=== PATIENT | male | born 1975 | race Caucasian/White ===

== ENCOUNTER 2018-08-26 10:57 | Outpatient (CLI) | payer BC ==
[~2018-08-26] VITALS: Ht 175.3 cm; Wt 106.8 kg
--- NOTE | ~2018-08-26 | HEMODYNAMI ---
PATIENT:VIRGINIA PORTILLO MEDICAL RECORD: [id number] : 73 LOCATION:[facility] ADMISSION DATE: 08/26/18 Generatedon:08/26/201813:48 Patient name: VIRGINIA PORTILLO Patient #: [id number] SSN: : 1975 Date of study: 08/26/2018 Page: Of Hemodynamic Procedure Report Patient Data Patient Demographics Procedure consent was obtained First Name: VIRGINIA Gender: Male Last Name: LINDSEY : 1975 Patient #: [id number] Age: 42 year(s) Race: Unknown Additional ID: [id number] Contact details Address: [address] [place] [address] [address] State: [place] City: [place] Zip code: [address] Past Medical History Allergies: No known allergies Admission Admission Data Admission Date: 08/26/2018 Admission Time: 10:57 Admit Source: Other Weight (lbs.): 233.69 Weight (kg.): 106 Lab Results Lab Result Date: 08/26/2018 Lab Result Time: 11:25 Biochemistry Name Units Result Min Max BUN mg/dl 18 --(---*)-- 7 18 Creatinine mg/dl 1.2 --(---*)-- 0.6 1.3 CBC Name Units Result Min Max Hematocrit % 38 *-(----)-- 42 54 Hemoglobin g/dl 13.4 -*(----)-- 13.5 17.5 Procedure Procedure Types Cath Procedure Diagnostic Procedure LHC LH w/Coronaries Sedation Charges Moderate Sedation up to 15 minutes PCI Procedure Coronary Stent Coronary Stent Initial Procedure Description Procedure Date Procedure Date: 08/26/2018 Procedure Start Time: 13:28 Procedure End Time: 13:47 Procedure Staff Name Function Cristino Ramirez MD Performing Physician Fernie Hernandez RT Monitor Adolfo Palm RT Scrub Preston Carrillo RN Nurse Stefanie Khan RN [employer] Supervisor Procedure Data Cath Procedure Fluoroscopy Diagnostic fluoroscopy Total fluoroscopy Time: 4.1 time: 4.1 min min Diagnostic fluoroscopy Total fluoroscopy dose: dose: 1328 mGy 1328 mGy Contrast Material Contrast Material Type Amount (ml) Isovue 370 87 Entry Location Entry Primary Successful Side Size Upsize Upsize Entry Closure Moody ccessful Closure Location (Fr) 1 (Fr) 2 (Fr) Remarks Device Remarks Radial Right 6 Fr Mechanical artery Short Compression Estimated blood loss: 10 ml Diagnostic catheters Device Type Used For End Catheter Placement DIAGNOSTIC Deandre 110cm Procedure 5Fr catheter ([id number]) Procedure Complications No complications Procedure Medications Medication Administration Route Dosage Oxygen etCO2 Nasal cannula 2 l/min Lidocaine 2% added to field 20 Heparin Flush Bag added to field 2 bags (1000units/500ml NS) 0.9% NaCl I.V. 100 ml/hr Versed I.V. 2 mg Fentanyl I.V. 100 mcg Versed I.V. 2 mg Fentanyl I.V. 100 mcg Radial Cocktail I.A. 1 syringe (Verapamil 2mg/Nitro 400mcg/Heparin 1500units) Versed I.V. 2 mg Fentanyl I.V. 100 mcg Heparin Bolus I.V. 70583 units Effient P.O. 60 mg Hemodynamics Rest HGB: 13.4 (g/dl) Heart Rate: 84 (bpm) Pressure Samples Time Site Value (mmHg) Purpose Heart Use Rate(bpm) 13:31 LV 87/6,5 Snapshot 82 13:32 AO 110/74(87) Pullback 95 13:32 LV 115/4,16 Pullback 95 Gradients Valve Time Site 1 Site 2 Mean SEP/DFP Peak To Heart Use (mmHg) (sec/min) Peak Rate (mmHg) (bpm) Aortic 13:32 LV AO 6 5 5 95 115/4,16 110/74(87) Calculations Valve P-P Mean Valve Index Valve Source Name Gradient Area Flow (cm2) Aortic 5 6 5 6 Snapshots Pre Cath Intra NCS Post Cath Vital Signs Time Heart Resp SPO2 etCO2 NIBP Rhythm Pain Sedation Rate (ipm) (%) (mmHg) (mmHg) Status Level (bpm) 12:46:12 81 14 97 35.8 121/77(94) NSR 0 (11) 10(A) , No pain 12:50:21 86 12 95 32.1 117/71(93) NSR 0 (11) 10(A) , No pain 12:54:34 87 14 95 29.9 114/74(93) NSR 0 (11) 10(A) , No pain 12:58:45 84 15 95 38.9 116/74(97) NSR 0 (11) 10(A) , No pain 13:02:55 85 15 96 41.1 110/74(88) NSR 0 (11) 10(A) , No pain 13:07:07 85 15 96 40.4 105/72(87) NSR 0 (11) 10(A) , No pain 13:11:17 82 15 97 37.4 113/74(87) NSR 0 (11) 10(A) , No pain 13:15:33 86 17 95 36.7 109/69(83) NSR 0 (11) 10(A) , No pain 13:19:45 83 15 96 39.6 116/74(91) NSR 0 (11) 10(A) , No pain 13:23:59 80 16 96 37.4 113/70(84) NSR 0 (11) 10(A) , No pain 13:28:15 85 15 95 37.4 110/73(87) NSR 0 (11) 10(A) , No pain 13:32:31 95 18 94 0.7 111/65(73) NSR 0 (11) 10(A) , No pain 13:36:43 93 16 94 39.6 117/76(93) NSR 0 (11) 9(A) , No pain 13:40:59 93 16 95 4.4 110/72(86) NSR 0 (11) 9(A) , No pain 13:45:11 87 16 96 38.1 115/75(90) NSR 0 (11) 10(A) , No pain Medications Time Medication Route Dose Verified Delivered Reason Not es Effectiveness by by 12:48:24 Oxygen etCO2 2 l/min Cristino Buffie used for Nasal Mushtaq Carrillo travel counselor [employer] cannula 12:48:33 Lidocaine 2% added 20ml Cristino Cristino for local to vial Mushtaq Ramirez MD anesthetic field 12:48:39 Heparin Flush added 2 bags Cristino Cristino used for Bag to Mushtaq Ramirez MD procedure (1000units/500ml field NS) 12:48:47 0.9% NaCl I.V. 100 Cristino Buffie Per physician ml/hr Mushtaq Carrillo RN 13:22:34 Versed I.V. 2 mg Cristino Buffie for sedation Mushtaq Carrillo RN 13:22:39 Fentanyl I.V. 100 mcg Cristino Buffie for sedation Mushtaq Carrillo RN 13:26:00 Fentanyl I.V. 100 mcg Cristino Buffie for sedation Mushtaq Carrillo RN 13:26:56 Versed I.V. 2 mg Cristino Buffie for sedation Mushtaq Carrillo RN 13:30:47 Radial Cocktail I.A. 1 Cristino Cristino for (Verapamil syringe Mushtaq Ramirez MD vasodilation 2mg/Nitro 400mcg/Heparin 1500units) 13:31:13 Versed I.V. 2 mg Cristino Buffie for sedation Mushtaq Carrillo RN 13:31:17 Fentanyl I.V. 100 mcg Cristino Buffie for sedation Mushtaq Carrillo RN 13:39:52 Heparin Bolus I.V. 10,000 Cristino Buffie for abigail ified units Mushtaq Carrillo RN anticoagulation with dr ramirez 13:46:35 Effient P.O. 60 mg Cristino Buffie for Mushtaq Carrillo RN antiplatelet therapy Procedure Log Time Note 12:10:46 Stefanie Khan RN sent for patient. Start room use. 12:31:13 Informed consent obtained and on chart 12:31:18 Admit Source: Other 12:33:43 Diagnostic Cath status Elective 12:34:29 Time tracking: Regular hours (M-F 7:00 - 5:00) 12:34:32 Plan of Care:Hemodynamics will remain stable., Cardiac rhythm will remain stable., Comfort level will be maintained., Respiratory function will remain adequate., Patient/ family verbilizes understanding of procedure., Procedure tolerated without complication., Recovers from procedure without complications.. 12:34:35 Patient received from Pre/Post Procedure Room to CCL 2 Alert and oriented. Tansferred to table in Supine position. 12:34:36 Warm blankets applied, and kofi hugger turned on for patient comfort. 12:34:37 Correct patient and procedure confirmed by team. 12:34:37 ECG and BP/O2 sat monitors applied to patient. 12:34:48 H&P Date Dictated: 08/14/2018 Within 30 days and on chart., H&P Addendum completed by physician on day of procedure. (MUST COMPLETE FOR ALL OUTPATIENTS). 12:45:09 Vital chart was started 12:45:12 Baseline sample Acquired. 12:45:14 Rhythm: sinus rhythm 12:45:15 Full Disclosure recording started 12:45:16 Pre-procedure instructions explained to patient. 12:45:17 Pre-op teaching completed and patient verbalized understanding. 12:45:18 Family in waiting room. 12:45:19 Patient NPO since Breakfast. 12:45:27 Patient allergic to No known allergies 12:45:29 Is the patient allergic to Iodine/contrast media? No. 12:45:31 Is patient on blood thinner?No 12:45:32 Patient diabetic? Yes. 12:45:32 If diabetic: On Metformin? Yes 12:45:35 If on Metformin: Last Dose? 08/24/2018 12:45:39 Previous problem with sedation/anesthesia? No ? 12:45:42 Snore? Yes 12:45:43 Sleep apnea? Yes 12:45:43 Deviated septum? No 12:45:45 Opens mouth fully? Yes 12:45:46 Sticks out tongue? Yes 12:45:47 Airway obstruction? No ? 12:45:50 Dentures? No ? 12:45:52 Pre procedure: right dorsailis pedis pulse 2+ Normal; easily identifiable; not easily obliterated 12:45:55 Modified Johnson's test Ulnar < 7 seconds 12:45:58 Patient pain scale 0/10 ?. 12:46:01 IV patent on arrival in left forearm with 0.9% NaCl at O. 12:46:27 Lab Result : BUN 18 mg/dl 12:46:27 Lab Result : Hemoglobin 13.4 g/dl 12:46:27 Lab Result : Creatinine 1.2 mg/dl 12:46:27 Lab Result : Hematocrit 38 % 12:46:29 Lab results completed and on chart. 12:46:31 Right Radial & Right Groin area was prepped with chlora-prep and draped in sterile fashion 12:46:32 Alarms reviewed by R. N. 12:46:32 Sharps counted by scrub and verified by R.N. 12:46:33 Use device set Radial Dx or PCI 12:46:34 ACIST Syringe (74898) opened to sterile field. 12:46:35 Medline Cath Pack ([id number]) opened to sterile field. 12:46:35 Bag Decanter (2001S) opened to sterile field. 12:46:36 ACIST Hand Control (65956) opened to sterile field. 12:46:36 ACIST Manifold (34930) opened to sterile field. 12:46:37 Tegaderm 4 x 4 (1626W) opened to sterile field. 12:46:37 MBrace Wrist Support (050689794) opened to sterile field. 12:46:38 NEEDLE Cook 21G 4cm Radial (N25585) opened to sterile field. 12:46:38 DIAGNOSTIC WIRE .035 260cm J wire (644449) opened to sterile field. 12:46:39 SHEATH 6FR Slender (19-8620) opened to sterile field. 12:48:24 Oxygen 2 l/min etCO2 Nasal cannula was administered by Preston Carrillo RN; used for procedure; 12:48:33 Lidocaine 2% 20ml vial added to field was administered by Cristino Ramirez MD; for local anesthetic; 12:48:39 Heparin Flush Bag (1000units/500ml NS) 2 bags added to field was administered by Cristino Ramirez MD; used for procedure; 12:48:47 0.9% NaCl 100 ml/hr I.V. was administered by Preston Carrillo RN; Per physician; 12:54:48 Patient Weight : 233.69 lbs 12:55:35 Physician arrived 12:56:54 Zero performed for pressure channel P1 13:21:21 --------ALL STOP TIME OUT------ 13:21:22 Final Timeout: patient, procedure, and site verified with staff and physician. All members of the team are in agreement. 13:21:25 Right Radial & Right Groin site verified by team. 13:21:29 Maximum allowable Isovue 300 dose 300ml. Physician notified. (300ml for normal creatinines. For patients with creatinine of 1.7 or higher multiply weight(kg) x 5 divided by creatinine.) 13:21:32 Fire Safety Assessment: A--An alcohol-based skin anteseptic being used preoperatively., C--Open oxygen or nitrous oxide is being used., D--An ESU, laser, or fiber-optic light is being used. 13:21:35 Physical assessment completed. ASA score P 2 - A patient with mild systemic disease as per Cristino Ramirez MD. 13:21:37 Sedation plan: IV Moderate Sedation Medication:Versed, Fentanyl 13::34 Versed 2 mg I.V. was administered by Preston Carrillo RN; for sedation; ::39 Fentanyl 100 mcg I.V. was administered by Preston Carrillo RN; for sedation; 13:26:00 Fentanyl 100 mcg I.V. was administered by Preston Carrillo RN; for sedation; 13::56 Versed 2 mg I.V. was administered by Preston Carrillo RN; for sedation; ::39 Procedure started. 13:28:43 Local anesthetic to right radial artery with Lidocaine 2% by Cristino Ramirez MD.INITIAL ACCESS ONLY 13:28:50 A 6 Fr Short sheath was inserted into the Right Radial artery 13:30:35 A DIAGNOSTIC Deandre 110cm 5Fr catheter (738075) was advanced over the wire and used for Procedure. 13:30:47 Radial Cocktail (Verapamil 2mg/Nitro 400mcg/Heparin 1500units) 1 syringe I.A. was administered by Cristino Ramirez MD; for vasodilation; 13:31:13 Versed 2 mg I.V. was administered by Preston Carrillo RN; for sedation; 13:31:17 Fentanyl 100 mcg I.V. was administered by Preston Carrillo RN; for sedation; 13::50 LV gram done using ÁLVAREZ 13:31:53 Injector settings: Ml/sec: 5, Volume: 15, 13:31:54 LV hemodynamics recorded. 13:32:08 EF : 50 % 13:32:51 RCA angiography performed. 13:34:03 LCA angiography performed. 13:37:14 TUBING High Pressure Extension Tubing (Mushtaq) (BT9157Q) opened to sterile field. 13:37:14 BMW 300cm [place] 2 J wire (3770404A) opened to sterile field. 13:37:15 INFLATOR Merit BasixCompak (AH6625) opened to sterile field. 13:37:20 GUIDE 6FR XBLAD 3.5 catheter ([id number]) opened to sterile field. 13:37:24 Catheter exchanged over wire. 13:37:34 6 Fr xblad 3.5 guide catheter was inserted over the wire 13:39:52 Heparin Bolus 10,000 units I.V. was administered by Preston Carrillo RN; for anticoagulation; verified with dr ramirez 13:41:39 BMW wire advanced. 13:41:48 Wire advanced across lesion. 13:43:41 Pre PCI Site: [place] pLAD has 80% stenosis. 13:43:58 Place stent Inflation Number: 1 A LESLI OTW 3.5 x 18 stent ([id number]) was prepped and advanced across the Prox LAD . The stent was deployed at 12 KAHLIL for 0:10 (min:sec) . 13:44:20 Stent catheter was removed intact over wire. 13:44:28 Wire removed. 13:44:29 Guide catheter removed. 13:45:33 TR BAND Large ([id number]) opened to sterile field. 13:45:42 Sheath removed intact; hemostasis achieved with Mechanical Compression to the Right Radial artery. 13:45:46 Procedure ended.(Physican Out) 13:46:20 Fluoroscopy time 04.10 minutes. 13:46:24 Flurop Dose total: 1328 13:46:24 Fluoroscopy dose: 1328 mGy 13:46:28 Contrast amount:Isovue 370 87ml. 13:46:29 Sharps counted by scrub and verified by R.N. 13:46:31 TR band inflated with 12cc of air. 13:46:33 Insertion/operative site no bleeding no hematoma. 13:46:35 Effient 60 mg P.O. was administered by Preston Carrillo RN; for antiplatelet therapy; 13:46:38 Post right radial artery:stable, soft, clean and dry 13:46:40 Post Procedure Pulses reassessed and unchanged 13:46:43 Post-procedure physical assessment completed. ASA score P 2 - A patient with mild systemic disease as per Cristino Ramirez MD. 13:46:45 Post procedure rhythm: unchanged. 13:46:48 Estimated blood loss: 10 ml 13:46:49 Post procedure instruction explained to patient.Patient verbalizes understanding. 13:46:49 Patient needs reinforcement of post procedure teaching. 13:47:09 Procedure type changed to Cath procedure, Diagnostic procedure, LHC, LHC w/Coronaries, Sedation Charges, Moderate Sedation up to 15 minutes, PCI procedure, Coronary Stent, Coronary Stent Initial 13:47:30 Procedure and supply charges have been captured, reviewed, submitted and are correct. 13:47:32 Procedure Complication : No complications 13:47:34 Vital chart was stopped 13:47:34 See physician's report for complete and final results. 13:47:38 Report given to Pre/Post Procedure Room. 13:47:40 Patient transfered to Pre/Post Procedure Room with Stretcher. 13:47:42 Procedure ended. 13:47:42 Full Disclosure recording stopped 13:47:50 End room use (Document Last) Intervention Summary Intervention Notes Time ActionType Lesion and Equipment Action# Pressure Duration Attributes Used 13:43:58 Place stent Prox LAD LESLI OTW 3.5 1 12 00:10 x 18 stent ([id number]) Device Usage Item Name Manufacture Quantity Catalog Hospital Part Current Mini mal Lot# / Number Charge Number Stock Stock Serial# Code ACIST Syringe Acist 1 73337 179796 069421 551398 20 (92414) Medical Systems Inc Medline Cath Medline 1 [id number] 529991 71084 765080 5 Pack ([id number]) Bag Decanter Microtek 1 2001S 220611 26977 520618 5 (2001S) Medical Inc. ACIST Hand Acist 1 77240 870223 843260 148818 5 Control Medical (99270) Systems Inc ACIST Acist 1 42695 349489 002937 153574 5 Manifold Medical (65997) Systems Inc Tegaderm 4 x 3M 1 1626W 923868 167767 151986 5 4 (1626W) MBrace Wrist Advanced 1 140-0250-00 294663 25040 495852 5 Support Vascular (655665186) Dynamics NEEDLE Cook Cook Medical 1 G97425 831905 962966 421469 5 21G 4cm Radial (J63197) DIAGNOSTIC [place] 1 278870 222279 438134 165452 30 WIRE .035 260cm J wire (334895) SHEATH 6FR Terumo 1 [id number] 778495 869202 002891 5 Slender (80-1060) DIAGNOSTIC Terumo 1 40-6833 302540 878848 184640 5 Deandre 110cm 5Fr catheter (290641) TUBING High Merit 1 [id number] 085990 99255 858457 10 Pressure Medical Extension Tubing (Ramirez) (MI1432F) BMW 300cm Arceo 1 [id number] 434262 806254 846099 5 [place] 2 J Vascular wire (8228926G) INFLATOR Merit 1 NN1322 844050 434671 221658 15 Merit Medical BasixCompak (GO3020) GUIDE 6FR Cardinal 1 [id number] 481101 473040 741796 10 XBLAD 3.5 Health catheter (27303301) LESLI OTW 3.5 Medtronic 1 [id number] 752428 3260539 588129 5 [id number] x 18 stent ([id number]) TR BAND Large Terumo 1 [id number] 734858 198445 348627 40 ([id number]) Signature Audit [place] Time Signature Unsigned Intra-Procedure 08/26/2018 Fernie Hernandez 1:48:37 PM RT(R) Signatures Monitor : Fernie Hernandez RT Signature : Date : Time : [place] [id number] [place] [address]
[2018-08-26] MEDS ORDERED: OMEPRAZOLE20 M1 PO (11:17)
[2018-08-26] MEDS ORDERED: METFORMIN HCL500 M1 PO (11:17)
[2018-08-26] MEDS ORDERED: HCTZ25 MG PO (11:17)
[2018-08-26] MEDS ORDERED: COZAAR100 MG PO (11:17)
[2018-08-26] MEDS ORDERED: PRAVASTATIN SOD10 MG PO (11:18)
[2018-08-26] MEDS ORDERED: PIOGLITAZONE15 MG PO (11:18)
[2018-08-26] MEDS ORDERED: XANAX0.5 MG PO (11:19)
[2018-08-26] MEDS ORDERED: JARDIANCE25 MG PO (11:19)
[2018-08-26 11:30] VITALS: BP 133/78; Ht 175.3 cm; Wt 106.8 kg
[2018-08-26 11:36] LABS: BASOPHILS 1.3 % (0-2); EOSINOPHILS 0 % (0-7); HEMOGLOBIN 13.4 g/dL (13.5-17.5); LYMPHOCYTES 23.2 % (15-50); MCH 35.7 pg (26.0-34.0); MCHC 35.3 g/dL (31.0-37.0); MCV 101.3 fL (80.0-100.0); MEAN PLATELET VOLUME 10.1 fL (7.4-10.4); MONOCYTES 13.6 % (2-11); NEUTROPHILS 61.9 % (40-80); PLATELET COUNT 148 10x3/uL (130-400); RBC 3.75 10x6/uL (4.20-6.10); RDW 13.2 % (11.5-14.5); WBC 5.5 10x3/uL (4.8-10.8)
[2018-08-26 11:58] LABS: ANION GAP 14.4 mmol/L (8-16); CALCIUM 9.6 mg/dL (8.5-10.1); CARBON DIOXIDE 28.9 mmol/L (21.0-32.0); CREATININE - SERUM 1.2 mg/dL (0.6-1.3); POTASSIUM - SERUM 4.3 mmol/L (3.5-5.1)
--- NOTE | 2018-08-26 14:15 | NUR ---
2L NC, NO RESP DISTRESS. RIGHT WRIST TR BAND CDI, NO BLEEDING OR HEMATOMA NOTED. NO C/O PAIN OR NAUSEA. VSS. FAMILY AT BEDSIDE, CALL LIGHT WITHIN REACH.
[2018-08-26] MEDS ORDERED: EFFIENT10 MG PO (14:18)
--- NOTE | 2018-08-26 14:45 | NUR ---
SIPPING ON DRINK AND EATING SANDWICH WITH NO C/O NAUSEA. RIGHT WRIST TR BAND CDI, NO BLEEDING OR HEMATOMA NOTED. DENIES ANY NEEDS AT THIS TIME. VSS. WILL CONTINUE TO MONITOR.
--- NOTE | 2018-08-26 15:00 | NUR ---
RESTING QUIETLY WITH EYES CLOSED. RIGHT WRIST TR BAND CDI, NO BLEEDING OR HEMATOMA NOTED. DENIES ANY NEEDS AT THIS TIME. 2L NC WITH NO RESP DISTRESS. VSS. CALL LIGHT WITHIN REACH.
--- NOTE | 2018-08-26 15:30 | NUR ---
CONTINUES TO REST COMFORTABLY WITH NO C/O. RIGHT WRIST TR BAND CDI, NO BLEEDING OR HEMATOMA NOTED. DENIES ANY NEEDS. VSS. WILL CONTINUE TO MONITOR.
--- NOTE | 2018-08-26 16:00 | NUR ---
2L NC WITH NO RESP DISTRESS. RIGHT WRIST TR BAND CDI, NO BLEEDING OR HEMATOMA NOTED. NO NEEDS OR C/O VOICED AT THIS TIME. VSS. CALL LIGHT WITHIN REACH.
--- NOTE | 2018-08-26 17:05 | NUR ---
4CC OF AIR REMOVED FROM TR BAND WITH NO BLEEDING NOTED. VSS. WILL CONTINUE TO MONITOR.
--- NOTE | 2018-08-26 17:18 | NUR ---
4CC OF AIR REMOVED FROM TR BAND WITH NO BLEEDING NOTED.
--- NOTE | 2018-08-26 17:32 | NUR ---
LEFT PIV D/C'D WITH CATHETER INTACT, BAND AID TO SITE. UP TO BEDSIDE TO GET DRESSED.
--- NOTE | 2018-08-26 17:40 | NUR ---
REMAINING AIR REMOVED FROM TR BAND WITH NO BLEEDING NOTED. DRESSING PLACED TO SITE. DISCHARGE INSTRUCTIONS ALONG WITH EFFIENT PRESCRIPTION GIVEN, BOTH PT AND VERBALIZED UNDERSTANDING.
--- NOTE | 2018-08-26 17:52 | NUR ---
TAKEN OUT VIA WHEELCHAIR BY CATH WIRELESS ARCHITECT. LEFT FACILITY WITH FAMILY AND ALL PERSONAL BELONGINGS.
== END 2018-08-26 17:52 | disposition home or self-care (01) ==
LOC: D.CATH 10:57
PROVIDERS: ATTEND Internal Medicine Cardiovascular Disease
DX: I25.119 Atherosclerotic heart disease of native coronary artery with unspecified angina pectoris (principal); R06.02 Shortness of breath; Z01.812 Encounter for preprocedural laboratory examination

== ENCOUNTER → 2019-11-05 08:14 | Outpatient (CLI) | payer OTHER ==
[2018-08-26 11:30] VITALS: BMI 34.7
[~2019-11-05 08:14] MED LIST: COZAAR100 MG PO; EFFIENT10 MG PO; HCTZ25 MG PO; JARDIANCE25 MG PO; METFORMIN HCL500 M1 PO; OMEPRAZOLE20 M1 PO; PIOGLITAZONE15 MG PO; PRAVASTATIN SOD10 MG PO; XANAX0.5 MG PO
== END | disposition home or self-care (01) ==
LOC: D.HCCARDIO 08:14
PROVIDERS: ATTEND Internal Medicine Cardiovascular Disease
DX: I25.10 Atherosclerotic heart disease of native coronary artery without angina pectoris (principal)